=== PATIENT | female | born 2000 | race Caucasian/White ===

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

== ENCOUNTER 2021-05-02 15:12 | Outpatient (REF) | payer OTHER, SELFPAY | END 2021-05-02 15:13 | disposition home or self-care (01) | LOC: HO.LAB 15:12 | PROVIDERS: Visit Provider Internal Medicine | DX: Z20.822 Contact with and (suspected) exposure to COVID-19 (principal) | CPT/HCPCS: C9803; U0003; U0005 ==

== ENCOUNTER 2021-08-20 11:50 | Outpatient (REF) | payer OTHER, SELFPAY ==
[2021-08-20 14:51] LABS: Binax Internal Control QC Valid; Binax Lot number: 9864; Binax Now Covid-19 Ag Negative (Negative)
== END 2021-08-20 11:51 | disposition home or self-care (01) ==
LOC: HO.LAB 11:50
PROVIDERS: Visit Provider Internal Medicine
DX: Z20.822 Contact with and (suspected) exposure to COVID-19 (principal)
CPT/HCPCS: 36415; C9803